=== PATIENT | female | born 1960 | race Caucasian/White ===

== ENCOUNTER → 2017-10-04 | Outpatient (CLI) | payer MEDICARE, OTHER ==
[~2017-10-04] MED LIST: ASPI81TA3 PO; ENAL10TA PO; ESOM40CA PO; GABA300C16 PO; GLIP5TAB13 PO; HYDR-3498 PO; LORA-186 PO; MONT10TA21 PO; MTF1000T PO; NAPR-773 PO; OMEG1CAP2 PO; SERT50TA6 PO
--- NOTE | 2017-10-05 09:49 | RADRPT ---
PROCEDURE: CT head without intravenous contrast CLINICAL INDICATION: Headache. COMPARISON: None relevant listed. TECHNIQUE: Axial CT images from skull base to vertex with coronal and sagittal reformats. DOSE: The estimated administered radiation dose was CTDI vol = 42 mGy. DLP = 720 mGy-cm. One or mor e of the following dose reduction techniques were used: automated exposure control, adjustment of th e mA and/or kV according to patient size, or use of iterative reconstruction. FINDINGS: Parenchyma: No acute hemorrhage, large territorial infarction, or mass. Mild amount of periventricul ar and subcortical white matter hypodensity, a nonspecific finding often associated with chronic brody roangiopathy. Ventricles: Mild lateral ventriculomegaly slight the disproportionate to the degree of minimal volum e loss. The third and fourth ventricles are not enlarged. Extra-axial spaces: No herniation or midline shift. Tiny para falcine lipomas. Paranasal sinuses: The left sphenoid sinuses near completely opacified. The luna of the left spheno id sinus are thickened, sequela of chronic sinusitis. Mastoids and middle ears: Clear. Visualized orbits: Normal. Vessels: No calcified atherosclerotic arterial plaque identified. Bones: Normal. Extracranial soft tissues: Normal. Additional comment: None. IMPRESSION: 1. Mild lateral ventriculomegaly, slightly disproportionate to the degree of volume loss. Please co rrelate for clinical signs of normal-pressure hydrocephalus. 2. Bagld-yx-tuguozg left sphenoid sinusitis. RPTAT: PP Physician Kalyani Date Time Electronically viewed and signed by Physician Kalyani on 10/05/2017 09:48 LG/
== END | disposition home or self-care (01) ==
LOC: C/S 16:31
PROVIDERS: ATTEND Physical Medicine & Rehabilitation
DX: F07.81 Postconcussional syndrome (principal); R51 Headache
CPT/HCPCS: 70450